=== PATIENT | male | born 1965 | race Caucasian/White ===

== ENCOUNTER 2020-06-16 19:13 | Emergency (ER) | payer MEDICAID ==
[~2020-06-16] VITALS: Ht 144.8 cm; Wt 60.0 kg
[2020-06-16 20:30] VITALS: BP 132/81
[2020-06-16] MEDS ORDERED: PERTUSS(ACELL),DIPH,TET VAC/PF 0.5 ML VIAL IM ONE (20:45)
== END 2020-06-16 21:40 | disposition home or self-care (01) ==
LOC: EMS 19:17
DX: S51.852A Open bite of left forearm, initial encounter (principal); F17.210 Nicotine dependence, cigarettes, uncomplicated; Z91.010 Allergy to peanuts; W54.0XXA Bitten by dog, initial encounter; Y93.89 Activity, other specified; Y92.89 Other specified places as the place of occurrence of the external cause; Y99.8 Other external cause status
CPT/HCPCS: 90471; 90715